=== PATIENT | female | born 1970 | race Two or more races ===

== ENCOUNTER 2021-06-08 11:13 | Emergency (ER) | payer SELFPAY ==
[~2021-06-08] VITALS: Ht 162.6 cm; Wt 81.9 kg
[2021-06-08] MEDS ORDERED: PROCHLORPERAZINE 10 MG/2 ML VIAL. IV ONE (12:45)
[2021-06-08] MEDS ORDERED: KETOROLAC 30 MG/ML VIAL. IVP ONE (12:45)
[2021-06-08 12:53] LABS: BASO % 1 % (0-3); EOS # 0.2 x10^3/uL (0.0-0.7); EOS % 3 % (0-3); HEMATOCRIT 38.8 % (36.0-47.0); HEMOGLOBIN 13.2 g/dL (12.0-15.5); LYMPH # 1.7 x10^3/uL (1.0-4.8); LYMPH % 27 % (24-48); MEAN CORPUSCULAR HEMOGLOBIN 30 pg (25-35); MEAN CORPUSCULAR HGB CONC 34 g/dL (31-37); MEAN CORPUSCULAR VOLUME 87 fL (79-100); MONO # 0.5 x10^3/uL (0.0-1.1); MONO % 8 % (0-9); NEUT # 4.1 x10^3/uL (1.8-7.7); NEUT % 63 % (31-73); PLATELET COUNT 388 x10^3/uL (140-400); RED BLOOD COUNT 4.46 x10^6/uL (3.50-5.40); RED CELL DISTRIBUTION WIDTH 14.2 % (11.5-14.5); WHITE BLOOD COUNT 6.6 x10^3/uL (4.0-11.0)
--- NOTE | 2021-06-08 12:57 | RAD ---
Single AP view of the chest. Comparison: None. Indication: Chest pain Findings: The heart is enlarged. There is no pneumothorax or effusion. No air space or interstitial disease. Impression: 1. No acute cardiopulmonary process. Electronically signed by: Nolan Hickman MD (06/08/2021 12:54 PM) [id number]
[2021-06-08 13:04] LABS: CALCIUM 8.3 mg/dL (8.5-10.1); CREATININE 0.5 mg/dL (0.6-1.0); GFR 130.6; POTASSIUM 3.9 mmol/L (3.5-5.1)
--- NOTE | 2021-06-08 13:10 | RAD ---
PQRS Compliance Statement: One or more of the following individualized dose reduction techniques were utilized for this examinat ion: 1. Automated exposure control 2. Adjustment of the mA and/or kV according to patient size 3. Use of iterative reconstruction technique CT HEAD WITHOUT CONTRAST History: Reason: headache / Spl. Instructions: / History: Comparison: None. Procedure: Axial images are obtained of the head from the skull base through the vertex without IV co ntrast. Findings: Right frontal lobe extra-axial CSF density is lentiform in shape and measures approximately 2.5 cm tr ansverse and 1.2 cm AP and scallops the calvarium and may be an arachnoid cyst. The ventricles and wilhelm lci are normal for the patient's age. No mass-effect, midline shift, hemorrhage, extra-axial fluid collection, or obvious acute infarction is identified. Basilar cisterns are patent. Bone windows demonstrate no acute calvarial abnormality. The visualized paranasal sinuses are clear. Mastoid air cells are well aerated. IMPRESSION: No acute intracranial abnormality. Electronically signed by: Epi Parson MD (06/08/2021 1:07 PM) [facility]
[2021-06-08 13:16] LABS: INFLUENZA A PATIENT NEGATIVE (NEGATIVE); INFLUENZA B PATIENT NEGATIVE (NEGATIVE)
[2021-06-08 14:08] LABS: BILIRUBIN,URINE NEGATIVE (NEG); CLARITY,URINE HAZY; COLOR,URINE YELLOW; NITRITE,URINE NEGATIVE (NEG); PH,URINE 6.5 (<5.0-8.0); PROTEIN,URINE NEGATIVE (NEG-TRACE); UROBILINOGEN,URINE 0.2 mg/dL (0.2 mg/dL)
[2021-06-08 14:10] LABS: BACTERIA,URINE FEW /HPF (0-FEW)
[2021-06-08 15:57] VITALS: BP 104/61
[2021-06-08] MEDS ORDERED: KETO10TA PO (15:57)
[2021-06-08] MEDS ORDERED: PROC10TA57 PO (15:57)
--- NOTE | 2021-06-08 15:58 | PHYS DOC ---
Past Medical History Past Surgical History: Cholecystectomy, Smoking Status: Never Smoker Alcohol Use: None Adult General Chief Complaint Chief Complaint: DIZZY/LIGHT HEADED HPI HPI Patient is a 50 year old female who presents with a headache and right posterior shoulder discomfort this been present for the last day or so. The p ain is in the posterior aspect of the scalp, patient points to the region of paraspinal musculature insertion at the base of the skull. She claims this is the area of greatest pain. She also has some pain over the right trapezius region. No recent trauma or fall. She does not have any confusion, nausea, vomiting, fever or rash. She has not had headaches like this previously. Review of Systems Review of Systems Constitutional: Denies fever Eyes: Denies change in visual acuity or eye pain HENT: Denies sore throat Respiratory: Denies shortness of breath Cardiovascular: Denies chest pain GI: Denies abd pain : Denies dysuria Musculoskeletal: Denies back or extremity injury Integument: Denies rash or skin lesions Neurologic: Reports headache, focal weakness or sensory changes All other systems were reviewed and found to be within normal limits, except as documented in this note. Current Medications Current Medications Current Medications Medications (Trade) Dose Ordered Sig/Karely Start Time Stop Time Status Last Admin Dose Admin Ketorolac Tromethamine (Toradol 30mg Vial) 30 mg 1X ONCE 06/08/21 12:45 06/08/21 12:48 DC 06/08/21 13:06 30 MG Prochlorperazine Edisylate (Compazine) 10 mg 1X ONCE 06/08/21 12:45 06/08/21 12:48 DC 06/08/21 13:06 10 MG Allergies Allergies Allergies Coded Allergies Type Severity Reaction Last Updated Verified No Known Drug Allergies 06/08/21 No Physical Exam Physical Exam Constitutional: Well developed, well nourished, no acute distress, non-toxic appearance. HENT: Normocephalic, atraumatic, bilateral external ears normal, mucosa moist, nose normal. Eyes: EOMI, conjunctiva normal, no discharge. Neck: Normal range of motion, no stridor, no meningeal signs. Patient has some tenderness over the occiput at the insertion of the upper paraspinal muscles. She also has tenderness on palpation of the right trapezius. Cardiovascular: Regular rate and rhythm Lungs & Thorax: Bilateral breath sounds clear to auscultation Abdomen: Soft, no tenderness or obvious masses Skin: Warm, dry, no erythema, no rash. Extremities: No tenderness, no cyanosis, no clubbing, ROM intact, no edema. Neurologic: Alert and oriented, normal motor function, normal sensory function, no focal deficits noted. Psychologic: Affect normal, judgement normal, mood normal. Current Patient Data Vital Signs Vital Signs Date Time Temp Pulse Resp B/P (MAP) Pulse Ox O2 Delivery O2 Flow Rate FiO2 06/08/21 11:25 98.2 72 18 119/71 (87) 97 Room Air 98.2 Lab Values Laboratory Tests Test 06/08/21 11:40 06/08/21 11:48 06/08/21 13:40 Influenza Type A Antigen Negative (NEGATIVE) Influenza Type B Antigen Negative (NEGATIVE) SARS-CoV-2 Antigen (Rapid) Negative (NEGATIVE) White Blood Count 6.6 x10^3/uL (4.0-11.0) Red Blood Count 4.46 x10^6/uL (3.50-5.40) Hemoglobin 13.2 g/dL (12.0-15.5) Hematocrit 38.8 % (36.0-47.0) Mean Corpuscular Volume 87 fL (79-100) Mean Corpuscular Hemoglobin 30 pg (25-35) Mean Corpuscular Hemoglobin Concent 34 g/dL (31-37) Red Cell Distribution Width 14.2 % (11.5-14.5) Platelet Count 388 x10^3/uL (140-400) Neutrophils (%) (Auto) 63 % (31-73) Lymphocytes (%) (Auto) 27 % (24-48) Monocytes (%) (Auto) 8 % (0-9) Eosinophils (%) (Auto) 3 % (0-3) Basophils (%) (Auto) 1 % (0-3) Neutrophils # (Auto) 4.1 x10^3/uL (1.8-7.7) Lymphocytes # (Auto) 1.7 x10^3/uL (1.0-4.8) Monocytes # (Auto) 0.5 x10^3/uL (0.0-1.1) Eosinophils # (Auto) 0.2 x10^3/uL (0.0-0.7) Basophils # (Auto) 0.0 x10^3/uL (0.0-0.2) Sodium Level 138 mmol/L (136-145) Potassium Level 3.9 mmol/L (3.5-5.1) Chloride Level 104 mmol/L (98-107) Carbon Dioxide Level 29 mmol/L (21-32) Anion Gap 5 (6-14) L Blood Urea Nitrogen 14 mg/dL (7-20) Creatinine 0.5 mg/dL (0.6-1.0) L Estimated GFR (Cockcroft-Gault) 130.6 Glucose Level 117 mg/dL (70-99) H Calcium Level 8.3 mg/dL (8.5-10.1) L Urine Collection Type Unknown Urine Color Yellow Urine Clarity Hazy Urine pH 6.5 (<5.0-8.0) Urine Specific [place] 1.025 (1.000-1.030) Urine Protein Negative mg/dL (NEG-TRACE) Urine Glucose (UA) Negative mg/dL (NEG) Urine Ketones (Stick) Negative mg/dL (NEG) Urine Blood Trace (NEG) Urine Nitrite Negative (NEG) Urine Bilirubin Negative (NEG) Urine Urobilinogen Dipstick 0.2 mg/dL (0.2 mg/dL) Urine Leukocyte Esterase Negative (NEG) Urine RBC 1-2 /HPF (0-2) Urine WBC 1-4 /HPF (0-4) Urine Squamous Epithelial Cells Few /LPF Urine Calcium Phosphate Crystals /HPF Urine Bacteria Few /HPF (0-FEW) Urine Mucus Mod /LPF Laboratory Tests 06/08/21 11:48 Laboratory Tests 06/08/21 11:48 EKG EKG [] Radiology/Procedures Radiology/Procedures [] Impressions: PATIENT: RICARDO FITZPATRICKACCOUNT: [id number]#: [id number] : 1970 LOCATION: ER AGE: 50 SEX: F EXAM STATUS: REG ER ORD. PHYSICIAN: PHUC HOLLINGSWORTH MD REASON: pain PROCEDURE: CHEST AP ONLY Single AP view of the chest. Comparison: None. Indication: Chest pain Findings: The heart is enlarged. There is no pneumothorax or effusion. No air space or interstitial disease. Impression: 1. No acute cardiopulmonary process. Electronically signed by: Nolan Hickman MD (06/08/2021 12:54 PM) [id number] DICTATED and SIGNED BY: NOLAN HICKMAN MD DATE: 06/08/21 [id number] PATIENT: RICARDO FITZPATRICKACCOUNT: [id number] : 1970 LOCATION: ER AGE: 50 SEX: F EXAM STATUS: REG ER ORD. PHYSICIAN: PHUC HOLLINGSWORTH MD REASON: headache PROCEDURE: CT HEAD WO CONTRAST PQRS Compliance Statement: One or more of the following individualized dose reduction techniques were utilized for this examination: 1. Automated exposure control 2. Adjustment of the mA and/or kV according to patient size 3. Use of iterative reconstruction technique CT HEAD WITHOUT CONTRAST History: Reason: headache / Spl. Instructions: / History: Comparison: None. Procedure: Axial images are obtained of the head from the skull base through the vertex without IV contrast. Findings: Right frontal lobe extra-axial CSF density is lentiform in shape and measures approximately 2.5 cm transverse and 1.2 cm AP and scallops the calvarium and may be an arachnoid cyst. The ventricles and sulci are normal for the patient's age. No mass-effect, midline shift, hemorrhage, extra-axial fluid collection, or obvious acute infarction is identified. Basilar cisterns are patent. Bone windows demonstrate no acute calvarial abnormality. The visualized paranasal sinuses are clear. Mastoid air cells are well aerated. IMPRESSION: No acute intracranial abnormality. Electronically signed by: Epi Parson MD (06/08/2021 1:07 PM) [facility] DICTATED and SIGNED BY: EPI PARSON MD DATE: 06/08/21 [id number] Course & Med Decision Making Course & Med Decision Making Pertinent Labs and Imaging studies reviewed. (See chart for details) [] There is a 50-year-old female with an several headache and some tenderness in her right trapezius muscle. CT of the head is negative as was a chest film. Patient was given Toradol and Compazine with relief of symptoms. We will give her prescriptions for the above medications to be used on a as needed basis and have her follow-up with her primary care physician, she is stable for discharge at this time. Dragon Disclaimer Dragon Disclaimer This electronic medical record was generated, in whole or in part, using a voice recognition dictation system. Departure Departure Impression: Primary Impression: Headache Disposition: HOME / SELF CARE / HOMELESS Condition: STABLE Referrals: NO PCP (PCP) Patient Instructions: General Headache Without Cause Scripts Ketorolac Tromethamine (KETOROLAC TROMETHAMINE) 10 Mg Tablet 1 TAB PO TID PRN for PAIN, #10 TAB Prov: PHUC HOLLINGSWORTH MD 06/08/21 Prochlorperazine Maleate (Compazine) 10 Mg Tablet 10 MG PO TID PRN PRN for PAIN, #10 TAB Prov: PHUC HOLLINGSWORTH MD 06/08/21 PHUC HOLLINGSWORTH MD Jun 08, 2021 15:58
--- NOTE | 2021-06-10 10:17 | EKG ---
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
== END 2021-06-08 16:00 | disposition home or self-care (01) ==
LOC: ER 11:13
DX: R51.9 Headache, unspecified (principal); M25.511 Pain in right shoulder; Z20.822 Contact with and (suspected) exposure to COVID-19; R07.89 Other chest pain
CPT/HCPCS: 36415; 70450; 71045; 80048; 81001; 85025; 87428; 93005; 96374; 96375; 99285; J0780; J1885